=== PATIENT | female | born 1960 | race Asian ===

== ENCOUNTER 2016-11-22 14:13 | Emergency (ER) | payer OTHER ==
[~2016-11-22] VITALS: Ht 152.4 cm; Wt 65.0 kg
[~2016-11-22 14:13] MED LIST: DIAZ10 PO; NAPR550 PO; PROV10TA PO; TAB-TAB PO; ZOLO25TA PO
[2016-11-22 14:19] VITALS: BP 147/75; PULSE 75; RESP 20; TEMP 98.1; O2SAT 97
[2016-11-22] MEDS ORDERED: CITA10TA4 PO (14:37)
--- NOTE | 2016-11-22 15:07 | PD ---
HPI . slip and fall at work Chief Complaint: Injury Time Seen by Provider: 14:40 Travel History International Travel<30 days: No Contact w/Intl Traveler<30days: No Traveled to known affect area: No History of Present Illness HPI 56 yr old female here after a slip and fall accident at work. She tripped and fell and hit her knee on the concrete and also hit herself on some boxes. She is c/o right knee pain. She went to an urgent care and was told she has a patellar fracture, but did not have any imaging. She was told she would need to come to the ED for evaluation. She rates the pain as 10/10 on pain scale and it is localized to the right knee. She denies any other injuries. She denies any head injury or LOC. PFSH Past Medical History Anxiety: Yes Depression: Yes Cancer: No Diabetes: No Glaucoma: No Hepatitis: No Hiatal Hernia: No Hypertension: No Thyroid Disease: No Tetanus Vaccination: > 5 Years Influenza Vaccination: Yes ?: Not : 4 Para: 2 Miscarriage: 0 : 2 Past Surgical History Surgical History: No Previous Surgery Abdominal Surgery: No Cardiac Surgery: No Ear Surgery: No Endocrine Surgery: No Eye Surgery: No Genitourinary Surgery: No Gynecologic Surgery: No Oral Surgery: No Pacemaker: No Thoracic Surgery: No Social History Alcohol Use: No Tobacco Use: No Substance Use: No Allergies-Medications (Allergen,Severity, Reaction): Coded Allergies: No Known Allergies (Verified , 11/22/16) Uncoded Allergies: CLEANING SOLUTIONS (Allergy, Intermediate, Rash, 05/17/08) Reported Meds & Prescriptions Reported Meds & Active Scripts Active Lortab (Hydrocodone-Acetaminophen) 5-325 Mg Tab 1 Tab PO Q6H PRN Reported Citalopram (Citalopram Hydrobromide) 10 Mg Tab 10 Mg PO DAILY Review of Systems General / Constitutional: No: Fever Eyes: No: Visual changes HENT: No: Headaches Cardiovascular: No: Chest Pain or Discomfort Respiratory: No: Shortness of Breath Gastrointestinal: No: Abdominal Pain Genitourinary: No: Dysuria Musculoskeletal: Positive: Pain (left knee pain) Skin: No Rash Neurologic: No: Weakness Psychiatric: No: Depression Endocrine: No: Polydipsia Hematologic/Lymphatic: No: Easy Bruising Physical Exam Narrative GENERAL: AAO x 3, no acute distress, Well-nourished, well-developed patient. SKIN: Warm and dry. No visible rashes or bruising. Small area of ecchymosis to right chin. about 1 cm, no open wounds HEAD: Normocephalic and atraumatic. EYES: No scleral icterus. No injection or drainage. EOM intact, PERRLA ENT: No nasal drainage noted. Mucous membranes pink. Airway patent. NECK: Supple, trachea midline. No JVD. CARDIOVASCULAR: Regular rate and rhythm without murmurs, gallops, or rubs. RESPIRATORY: Breath sounds equal bilaterally. No accessory muscle use. No rhonchi or rales. GASTROINTESTINAL: Abdomen soft, non-tender, nondistended. EXTREMITIES: No cyanosis. Right knee edematous, tender to touch over patella. Decreased ROM with edema and pain. Inability to extend. BACK: Nontender without obvious deformity. No CVA tenderness. PSYCH: AAO x 3, normal affect. Data Data Last Documented VS Vital Signs Date Time Temp Pulse Resp B/P Pulse Ox O2 Delivery O2 Flow Rate FiO2 11/22/16 14:37 Room Air 11/22/16 14:19 98.1 75 20 147/75 97 Orders Knee, Complete (4vws) (11/22/16 14:45) Tramadol (Ultram) (11/22/16 15:30) ^ Knee Immobilizer (11/22/16 17:05) MDM Medical Decision Making Medical Screen Exam Complete: Yes Emergency Medical Condition: Yes Differential Diagnosis patella fracture, knee dislocation, knee sprain Narrative Course 56 yr old female here after a slip and fall accident at work. She tripped and fell and hit her knee on the concrete and also hit herself on some boxes. She is c/o right knee pain. She went to an urgent care and was told she has a patellar fracture, but did not have any imaging. She was told she would need to come to the ED for evaluation. She rates the pain as 10/10 on pain scale and it is localized to the right knee. She denies any other injuries. She denies any head injury or LOC. Patient seen and examined. She has significant tenderness over the patella, edema and limited range of motion. More than likely there is a fracture. X-rays ordered Tramadol for pain. After tramadol pain significantly improved. X-ray positive for nondisplaced patellar fracture. Call placed orthopedic. Last Impressions Knee X-Ray 11/22/16 4715 Signed Impressions: Service Date/Time: Tuesday, November 22, 2016 15:09 - CONCLUSION: 1. Nondisplaced comminuted patella fracture. 2. Large joint effusion. [place] MD Discussed with Dejon who was speaking to Dr. Chambers: patient to f/u in his office. Information will be attached to discharge paperwork. Discussed with . He is wanting to know why her knee cap can't be replaced today. Filled workers comp papers. Patient requested to be transferred to a medical bed to see a physician. Dr. Lazcano and myself explained the instructions from ortho and f/u needed. I discussed discharge with the patient. The verbalized understanding. Diagnosis Primary Impression: Right patella fracture Qualified Code: S82.001A - Closed nondisplaced fracture of right patella, unspecified fracture morphology, initial encounter Referrals: Edi Adams Jr., MD Patient Instructions: General Instructions Additional Instructions: Rest the affected area as much as possible. Ice this area for 15-20 minutes at a time. You can do this every hour or as much as tolerated. . Elevate this area. Use ibuprofen as needed for pain and inflammation. We have provided lortab for pain control as well. Follow-up with Dr. Chambers in his office. Please call for an appointment. You should try to follow up tomorrow. 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 Scripts Hydrocodone-Acetaminophen (Lortab)5-325 Mg Tab1 Tab PO Q6H PRN (PAIN) #12 TAB Ref 0 Prov:Wilder Lazcano MD 11/22/16 Disposition: 01 DISCHARGE HOME Condition: Stable Linda Patel Nov 22, 2016 15:07
--- NOTE | 2016-11-22 15:22 | RADRPT ---
EXAM DATE/TIME: 11/22/2016 15:09 [facility] COMPARISON: No previous studies available for comparison. INDICATIONS : Right knee pain, fell MEDICAL HISTORY : None. SURGICAL HISTORY : None. ENCOUNTER: Initial ACUITY: 1 day PAIN SCORE: 10/10 LOCATION: Right Knee FINDINGS: A standard 4 view examination of right knee was obtained and demonstrates a nondisplaced comminuted f racture involving the patella with multiple fracture lines. The distal femur and tibia are intact. Th ere is evidence of a large joint effusion. CONCLUSION: 1. Nondisplaced comminuted patella fracture. 2. Large joint effusion. [place] MD on November 22, 2016 at 15:19 Board Certified Radiologist. This report was verified electronically.
[2016-11-22] MEDS ORDERED: traMADol HCL 50 MG TAB PO ONE (15:30)
[2016-11-22] MEDS ORDERED: HYDR-3533 PO (17:06)
[2016-11-22 17:40] VITALS: BP 150/76
== END 2016-11-22 17:45 | disposition home or self-care (01) ==
LOC: NEPB 14:13 → NEPA 17:45
DX: S82.044A Nondisplaced comminuted fracture of right patella, initial encounter for closed fracture (principal); W18.09XA Striking against other object with subsequent fall, initial encounter; Y99.0 Civilian activity done for income or pay; M25.461 Effusion, right knee
CPT/HCPCS: 73564; 99283; E0113